=== PATIENT | female | born 1955 | race Caucasian/White ===

== ENCOUNTER 2018-10-02 09:26 | Emergency (ER) | payer OTHER ==
[2018-10-02 09:42] VITALS: BMI 30.7
--- NOTE | 2018-10-02 10:15 | PDOC ---
History of Present Illness - General Chief Complaint: Chest Pain Stated Complaint: CHEST PAIN Time Seen by Provider: 10/02/18 10:14 - History of Present Illness Initial Comments: 10/02/18 10:19 Ms. Devine is a 62 yo female w/ pmh of current IBS testing who presents for evaluation of 1 day of chest pain and 4 day history of cough. Patient reports symptoms started 4 days ago with dry cough and that she additionally had 1 day of fever on tuesday that resolved on its own. She also endorses diarrhea 2 nights ago followed by hard stools yesterday. Ms. Devine denies any other complaints at this time. Past History - Past Medical History Allergies/Adverse Reactions: Allergies Allergy/AdvReac Type Severity Reaction Status Date / Time No Known Allergies Allergy Verified 07/05/14 07:07 Home Medications: Ambulatory Orders Bupropion HCl [Bupropion Xl] 300 mg PO DAILY 09/10/12 Amlodipine Besylate [Norvasc -] 5 mg PO DAILY 11/15/12 Aspirin [ASA -] 81 mg PO DAILY #30 tab.chew 07/08/14 Budesonide/Formeterol Fumarate [SYMBICORT 160/4.5mcg -] 1 inh PO BID #1 cannister 07/08/14 Carvedilol [Coreg -] 3.125 mg PO BID #60 tablet 07/08/14 Naproxen [Naprosyn -] 250 mg PO Q12H PRN #60 tablet 07/08/14 Pantoprazole Sodium [Protonix -] 40 mg PO DAILY #30 tablet.ec 07/08/14 Rosuvastatin [Crestor -] 20 mg PO HS #30 tablet 07/08/14 Azithromycin [Zithromax 250mg Tablets -] 250 mg PO UTDICT #6 tab 10/02/18 Anemia: No Asthma: No Cancer: No Cardiac Disorders: No CVA: No COPD: No CHF: No Dementia: No Diabetes: No GI Disorders: No Disorders: No HTN: Yes Hypercholesterolemia: Yes Liver Disease: No Seizures: No Thyroid Disease: No - Surgical History Abdominal Surgery: No Appendectomy: No Cardiac Surgery: No Cholecystectomy: No Lung Surgery: No Neurologic Surgery: No Orthopedic Surgery: Yes (ROTATOR CUFF RIGHT SHOULDER) - Immunization History Immunization Up to Date: Yes - Suicide/Smoking/Psychosocial Hx Smoking Status: Yes Smoking History: Never smoked Have you smoked in the past 12 months: Yes Number of Cigarettes Smoked Daily: 1 'Breaking Loose' booklet given: 11/15/12 Hx Alcohol Use: No Drug/Substance Use Hx: No Substance Use Type: None Hx Substance Use Treatment: No Review of Systems - Review of Systems Comments:: 10/02/18 12:14 GENERAL/CONSTITUTIONAL: +Prior fever as described. No chills. No weakness. HEAD, EYES, EARS, NOSE AND THROAT: No change in vision. No ear pain or discharge. No sore throat. CARDIOVASCULAR: No chest pain or shortness of breath RESPIRATORY: +Cough as described with concurrent chest pain. No wheezing, or hemoptysis. GASTROINTESTINAL: No nausea, vomiting, diarrhea or constipation. GENITOURINARY: No dysuria, frequency, or change in urination. MUSCULOSKELETAL: No joint or muscle swelling or pain. No neck or back pain. SKIN: No rash NEUROLOGIC: No headache, vertigo, loss of consciousness, or change in strength/ sensation. ENDOCRINE: No increased thirst. No abnormal weight change HEMATOLOGIC/LYMPHATIC: No anemia, easy bleeding, or history of blood clots. ALLERGIC/IMMUNOLOGIC: No hives or skin allergy. *Physical Exam - Vital Signs Last Vital Signs Temp Pulse Resp BP Pulse Ox 98.6 F 98 H 17 156/64 94 L 10/02/18 09:38 10/02/18 09:38 10/02/18 09:38 10/02/18 09:38 10/02/18 09:38 - Physical Exam Comments: 10/02/18 12:13 GENERAL: Awake, alert, and fully oriented, in no acute distress HEAD: No signs of trauma, normocephalic, atraumatic EYES: PERRLA, EOMI, sclera anicteric, conjunctiva clear ENT: Auricles normal inspection, hearing grossly normal, nares patent, oropharynx clear without exudates. Moist mucosa NECK: Normal ROM, supple, no lymphadenopathy, JVD, or masses LUNGS: +R sided coarse breath sounds appreciated. Chest pain reproducible. No distress, speaks full sentences HEART: Regular rate and rhythm, normal S1 and S2, no murmurs, rubs or gallops, peripheral pulses normal and equal bilaterally. ABDOMEN: Soft, nontender, normoactive bowel sounds. No guarding, no rebound. No masses EXTREMITIES: Normal inspection, Normal range of motion, no edema. No clubbing or cyanosis. NEUROLOGICAL: Cranial nerves II through XII grossly intact. Normal speech, normal gait, no focal sensorimotor deficits SKIN: Warm, Dry, normal turgor, no rashes or lesions noted. 10/02/18 12:14 ED Treatment Course - LABORATORY CBC & Chemistry Diagram: 10/02/18 10:39 10/02/18 10:38 Medical Decision Making - Medical Decision Making 10/02/18 12:54 Ms. Devine is a 62 yo female w/ pmh as described who presents for evaluation of symptoms concerning for ACS vs. pnuemonia vs. URI. Patient evaluated with EKG and labs as below as well as CXR. EKG negative. Imaging significant for R lobar pneumonia. Labs grossly wnl as below. Patient otherwise well appearing. Will treat w/ oral medications and discharge to home. 10/02/18 13:06 Z-jessie sent to patient's pharmacy. Patient verbalized she agrees with plan and will f/u w/ PCP later this week. Discharging. Laboratory Results - last 24 hr 10/02/18 10/02/18 10/02/18 10:38 10:39 11:08 WBC 13.0 H RBC 4.77 Hgb 14.0 Hct 43.2 MCV 90.5 MCH 29.4 MCHC 32.5 RDW 13.3 Plt Count 194 MPV 10.5 Absolute Neuts (auto) 9.8 H Neutrophils % 74.9 D Lymphocytes % 14.3 D Monocytes % 10.6 H Eosinophils % 0.0 Basophils % 0.2 Nucleated RBC % 0 Sodium 137 Potassium 4.1 Chloride 103 Carbon Dioxide 24 Anion Gap 10 BUN 12 Creatinine 0.6 Creat Clearance w eGFR 100.97 Random Glucose 84 Calcium 8.6 Total Bilirubin 0.6 AST 18 ALT 16 Alkaline Phosphatase 68 Creatine Kinase 70 Troponin I < 0.02 Total Protein 7.3 Albumin 3.6 Influenza A (Rapid) Negative Influenza B (Rapid) Negative *DC/Admit/Observation/Transfer Diagnosis at time of Disposition: Pneumonia Qualifiers: Pneumonia type: due to unspecified organism Laterality: right Lung location: upper lobe of lung Qualified Code(s): J18.1 - Lobar pneumonia, unspecified organism - Discharge Dispostion Disposition: HOME - Prescriptions Prescriptions: Azithromycin [Zithromax 250mg Tablets -] 250 mg PO UTDICT #6 tab - Referrals Referrals: Hans Foster MD [Primary Care Provider] - - Patient Instructions Printed Discharge Instructions: DI for Pneumonia -- Adult Additional Instructions: You were evaluated today in the ER and found to have pneumonia. We sent a prescription for antibiotics to your pharmacy. Please take all medications as written. You may take them with pro-biotics for prophylaxis from GI upset. Please follow-up with primary care provider in 1-2 days for further evaluation. Return to ER if any further chest pain, fever, chills, continuation of symptoms , or other concerning developments. - Post Discharge Activity
[2018-10-02] MEDS ORDERED: ALBUTEROL SO4 2.5/IPRATROPIUM 0.5 INH SOL 3 ML VIAL.NEB. NEB ONE ×2 (10:22→10:32)
--- NOTE | 2018-10-02 10:57 | PDOC ---
Attending Attestation - Resident Resident Name: Tariq Suero - ED Attending Attestation I have performed the following: I have examined & evaluated the patient, The case was reviewed & discussed with the resident, I agree w/resident's findings & plan, Exceptions are as noted - HPI HPI: 62 yo F history depression, HTN, HL presents with chest pain, fever, cough, nausea, diarrhea, and constipation for the past 4 days. She states she had fever to 102 the first day, which has since resolved. She has history of IBS for which she is currently under treatment by Dr. Lundberg. In the past 4 days her intermittent diarrhea and constipation have worsened. No known sick contacts. Cough worsened today while she was at work so she decided to seek evaluation. - Physicial Exam PE: GENERAL: Awake, alert, and fully oriented, in no acute distress HEAD: No signs of trauma EYES: PERRLA, EOMI, sclera anicteric, conjunctiva clear ENT: Auricles normal inspection, hearing grossly normal, nares patent, oropharynx clear without exudates. Moist mucosa NECK: Normal ROM, supple, no lymphadenopathy, JVD, or masses LUNGS: Good air entry B/L. Scattered rhonchi. HEART: Regular rate and rhythm, normal S1 and S2, no murmurs, rubs or gallops ABDOMEN: Soft, nontender, normoactive bowel sounds. No guarding, no rebound. No masses EXTREMITIES: Normal range of motion, no edema. No clubbing or cyanosis. No cords, erythema, or tenderness NEUROLOGICAL: Cranial nerves II through XII grossly intact. Normal speech, normal gait. Motor and sensation intact SKIN: Warm, Dry, normal turgor, no rashes or lesions noted. - Medical Decision Making Pt with 4 day history of cough, intermittent GI symptoms, chest pain that is associated with the cough. Will obtain labs, CXR to r/o pna, and flu swab.
[2018-10-02 11:31] LABS: BASO % 0.2 % (0-2.0); HEMATOCRIT 43.2 % (32.4-45.2); LYMPH % 14.3 % (8-40); MCH 29.4 pg (25.7-33.7); MCHC 32.5 g/dl (32.0-36.0); MEAN CELL VOLUME 90.5 fl (80-96); MEAN PLT VOLUME 10.5 fl (7.5-11.1); MONO % 10.6 % (3.8-10.2); NEUT % 74.9 % (42.8-82.8); PLATELET COUNT 194 K/MM3 (134-434); RBC 4.77 M/mm3 (3.60-5.2); RDW 13.3 % (11.6-15.6)
[2018-10-02 11:44] LABS: ALBUMIN 3.6 g/dl (3.4-5.0); ALK PHOS 68 U/L (45-117); ANION GAP 10 MMOL/L (8-16); BILIRUBIN,TOTAL 0.6 mg/dL (0.2-1); BLOOD UREA NITROGEN 12 mg/dL (7-18); CALCIUM 8.6 mg/dL (8.5-10.1); CHLORIDE 103 mmol/L (98-107); CO2 24 mmol/L (21-32); CREATININE 0.6 mg/dL (0.55-1.3); GLUCOSE,RANDOM 84 mg/dL (74-106); POTASSIUM 4.1 mmol/L (3.5-5.1); SGOT/AST 18 U/L (15-37); SGPT/ALT 16 U/L (13-61); SODIUM 137 mmol/L (136-145); TOT PROT 7.3 g/dl (6.4-8.2)
[2018-10-02] MEDS ORDERED: CEFTRIAXONE 1,000 MG in DEXTROSE 5%-WATER - 50 ML IVPB ONE (12:56)
[2018-10-02 13:31] VITALS: BP 145/63; PULSE 90; TEMP 98.3
--- NOTE | 2018-10-02 15:09 | EKG ---
Test Reason : Blood Pressure : / mmHG Vent. Rate : 087 BPM Atrial Rate : 087 BPM P-R Int : 162 ms QRS Dur : 080 ms QT Int : 364 ms P-R-T Axes : 091 015 016 degrees QTc Int : 438 ms NORMAL SINUS RHYTHM NONSPECIFIC ST ABNORMALITY ABNORMAL ECG WHEN COMPARED WITH ECG OF 05-JUL-2014 07:17, NO SIGNIFICANT CHANGE WAS FOUND Confirmed by AZALIA PARRY MD ([id number]) on 10/02/2018 3:09:31 PM Referred By: Confirmed By:AZALIA PARRY MD
== END 2018-10-02 13:31 | disposition home or self-care (01) ==
LOC: JER 09:26
PROC: 3E0F7GC Introduction of Other Therapeutic Substance into Respiratory Tract, Via Natural or Artificial Opening (ICD-10-PCS; principal; 2018-10-02)
DX: J18.1 Lobar pneumonia, unspecified organism (principal)
CPT/HCPCS: 36415; 71046-TC-FY; 80053; 82550; 84484; 85025; 87804; 93005; 93010; 99285-25

== ENCOUNTER 2021-02-07 20:13 | Inpatient (IN) | payer OTHER ==
[2021-02-07 21:08] LABS: BASO % 3.6 % (0-2.0); HEMATOCRIT 40.1 % (32.4-45.2); HEMOGLOBIN 13.3 GM/dl (10.7-15.3); LYMPH % 27.3 % (8-40); MCH 30.1 pg (25.7-33.7); MEAN CELL VOLUME 91.1 fl (80-96); MONO % 4.3 % (3.8-10.2); NEUT % 64.8 % (42.8-82.8); PLATELET COUNT 289 10^3/uL (134-434); RDW 12.5 % (11.6-15.6); WHITE BLOOD COUNT 10.7 K/mm3 (4.0-10.8)
[2021-02-07 21:21] LABS: INR 1.11 (0.82-1.09); PROTHROMBIN TIME (PATIENT) 12.3 SEC (10.2-13.0)
[2021-02-07 21:27] LABS: ALBUMIN 4.4 g/dl (3.4-5.0); ALK PHOS 75 U/L (45-117); ANION GAP 9 MMOL/L (8-16); BILIRUBIN,TOTAL 1.4 mg/dl (0.2-1); CHLORIDE 104 mmol/L (98-107); CO2 24 mmol/L (21-32); CREATININE 1.2 mg/dl (0.55-1.3); GLUCOSE,RANDOM 120 mg/dl (74-106); SGOT/AST 31 U/L (15-37); SGPT/ALT 11 U/L (13-61); SODIUM 137 mmol/L (136-145); TOT PROT 7.3 g/dl (6.4-8.2)
[2021-02-07] MEDS ORDERED: AZITHROMYCIN 250 MG TABLET PO ONE (21:54)
[2021-02-07 22:05] LABS: EPITHELIAL CELLS FEW /hpf
[2021-02-08 00:31] VITALS: BMI 29.3
[2021-02-08 09:49] LABS: CHOLESTEROL 173 mg/dl (50-200); HDL CHOLESTEROL 41 mg/dl (40-60); LDL CHOLESTEROL (ONLY DFH) 112 mg/dl (5-100); TRIGLYCERIDES 99 mg/dl (0-150)
[2021-02-08 10:01] LABS: BASO % 2.6 % (0-2.0); EOS % 0.1 % (0-4.5); HEMATOCRIT 37.6 % (32.4-45.2); HEMOGLOBIN 11.9 GM/dl (10.7-15.3); LYMPH % 39.6 % (8-40); MCH 29.1 pg (25.7-33.7); MCHC 31.5 g/dl (32.0-36.0); MEAN CELL VOLUME 92.4 fl (80-96); MEAN PLT VOLUME 9.6 fl (7.5-11.1); MONO % 9.1 % (3.8-10.2); NEUT % 48.6 % (42.8-82.8); PLATELET COUNT 228 10^3/uL (134-434); RBC 4.07 M/mm3 (3.60-5.2); RDW 12.5 % (11.6-15.6); WHITE BLOOD COUNT 9.1 K/mm3 (4.0-10.8)
[2021-02-08 10:02] LABS: ALBUMIN 3.8 g/dl (3.4-5.0); CALCIUM 8.8 mg/dl (8.5-10); CREATININE 0.9 mg/dl (0.55-1.3); MAGNESIUM 1.8 mg/dL (1.8-2.4); TOT PROT 6.5 g/dl (6.4-8.2)
[2021-02-08] MEDS: ASPIRIN COATED 81 MG TABLET.EC PO SCH (10:28)
[2021-02-08] MEDS: ATORVASTATIN CA 40 MG TABLET (FP) PO SCH ×2 (10:28→21:36)
[2021-02-09] MEDS: ASPIRIN COATED 81 MG TABLET.EC PO SCH (09:24)
[2021-02-09] MEDS ORDERED: diazePAM 2 MG TABLET PO ONE (13:00)
[2021-02-09] MEDS: ATORVASTATIN CA 40 MG TABLET (FP) PO SCH (21:27)
[2021-02-09] MEDS ORDERED: amLODIPine BESYLATE 5 MG TABLET (FP) PO SCH (22:00)
[2021-02-09] MEDS ORDERED: ACETAMINOPHEN 325 MG TABLET (FP) ONE (22:31)
[2021-02-10 06:10] VITALS: BP 117/63; PULSE 54; TEMP 97.7
[2021-02-10] MEDS: ASPIRIN COATED 81 MG TABLET.EC PO SCH (09:32)
[2021-02-10] MEDS ORDERED: ACETAMINOPHEN 325 MG TABLET (FP) PO PRN (10:00)
== END 2021-02-10 14:40 | disposition home or self-care (01) | DRG 69 ==
LOC: FER 20:13 → FM/S 23:57
PROVIDERS: ADMIT Internal Medicine; ATTEND Nurse Practitioner Family
DX: G45.9 Transient cerebral ischemic attack, unspecified (principal); R27.0 Ataxia, unspecified; E78.00 Pure hypercholesterolemia, unspecified; I10 Essential (primary) hypertension; E87.5 Hyperkalemia; E78.5 Hyperlipidemia, unspecified; E86.0 Dehydration; W19.XXXA Unspecified fall, initial encounter
CPT/HCPCS: 36415; 70450-TC; 70551-TC; 71045-TC-FY; 72131-TC; 80053; 80061; 81003; 81015; 82550; 82553; 82607; 83036; 83735; 84443; 84484; 85025; 85610; 85651; 86038; 93005; 93880-TC; 97116-GP; 97162-GP; 99285-25; C9803; U0003; U0005